=== PATIENT | female | born 1985 | race Caucasian/White ===

== ENCOUNTER 2017-06-08 14:12 | Outpatient (CLI) | payer OTHER | END 2017-06-08 16:50 | disposition home or self-care (01) | LOC: GENOP 14:12 | DX: O99.89 Other specified diseases and conditions complicating pregnancy, childbirth and the puerperium (principal); R10.9 Unspecified abdominal pain; Z3A.35 35 weeks gestation of pregnancy | CPT/HCPCS: 81001; G0463 ==

== ENCOUNTER 2017-06-26 19:52 | Inpatient (IN) | payer OTHER ==
[~2017-06-26] VITALS: Ht 160 cm; Wt 64.9 kg
[2017-06-26 20:53] LABS: HEMOGLOBIN 11.9 gm/dl (12.3-15.3); RED BLOOD COUNT 3.76 M/UL (4.00-5.10); WHITE BLOOD COUNT 15.7 K/UL (4.5-11.0)
[2017-06-28 06:19] LABS: HEMOGLOBIN 10.6 gm/dl (12.3-15.3)
[2017-06-29] MEDS ORDERED: COLACE 100MG C100 MG PO (12:22)
== END 2017-06-29 12:05 | disposition home or self-care (01) | DRG 775 ==
LOC: GENOP 19:52 → OB 20:25 → GENOP 06-27 10:47 → OB 06-27 11:54
PROVIDERS: Obstetrics & Gynecology; ADMIT Obstetrics & Gynecology
PROC: 10E0XZZ Delivery of Products of Conception, External Approach (ICD-10-PCS; principal; 2017-06-27)
PROC: 0UQGXZZ Repair Vagina, External Approach (ICD-10-PCS; 2017-06-27)
DX: O99.323 Drug use complicating pregnancy, third trimester (principal); F11.20 Opioid dependence, uncomplicated; O71.4 Obstetric high vaginal laceration alone; Z3A.38 38 weeks gestation of pregnancy; Z37.0 Single live birth; O76 Abnormality in fetal heart rate and rhythm complicating labor and delivery
CPT/HCPCS: 36415; 51702; 80307; 81001; 82800; 83518; 85014; 85018; 85025; G0463; J2405; J2590; J2795; J3010; J3430; J7120